=== PATIENT | female | born 1935 | race African-American/Black ===

== ENCOUNTER 2023-03-10 16:24 | Emergency (ER) | payer OTHER ==
[~2023-03-10] VITALS: Ht 157.5 cm; Wt 56.7 kg
[2023-03-10 16:34] VITALS: BP 121/71; PULSE 71; RESP 18; TEMP 98.4; O2SAT 97
[2023-03-10] MEDS ORDERED: BACITRACIN OINT 500 UNITS/GM PKT TP ONE (16:35)
[2023-03-10] MEDS ORDERED: LIDOCAINE 2% 1000 MG/50 ML VIAL INJ ONE (16:35)
[2023-03-10] MEDS ORDERED: BACI-105 TP (18:25)
[2023-03-10] MEDS ORDERED: DEXT15SY7 PO (18:25)
[2023-03-10] MEDS ORDERED: ACETAMINOPHEN 325 MG TAB PO ONE (19:05)
[2023-03-10 19:27] VITALS: BP 183/94; PULSE 71; RESP 18; TEMP 98.3; O2SAT 97
== END 2023-03-10 19:27 | disposition home or self-care (01) ==
LOC: MED 16:24
DX: S02.2XXA Fracture of nasal bones, initial encounter for closed fracture (principal); S02.5XXA Fracture of tooth (traumatic), initial encounter for closed fracture; S01.81XA Laceration without foreign body of other part of head, initial encounter; S43.401A Unspecified sprain of right shoulder joint, initial encounter; J45.909 Unspecified asthma, uncomplicated; I10 Essential (primary) hypertension; F03.90 Unspecified dementia, unspecified severity, without behavioral disturbance, psychotic disturbance, mood disturbance, and anxiety; Z79.899 Other long term (current) drug therapy; Z79.2 Long term (current) use of antibiotics; W01.198A Fall on same level from slipping, tripping and stumbling with subsequent striking against other object, initial encounter; Y92.129 Unspecified place in nursing home as the place of occurrence of the external cause; Y93.89 Activity, other specified; Y99.8 Other external cause status
CPT/HCPCS: 12011; 70450; 70486; 72125; 73030; 73060; 99284; J2001

== ENCOUNTER 2023-03-12 12:39 | Inpatient (IN) | payer OTHER ==
[~2023-03-12] VITALS: Ht 157.5 cm; Wt 56.7 kg
[2023-03-12] MEDS: methylPREDNISolone SS 40 MG/ML VIAL IVP SCH (00:28)
[~2023-03-12 12:39] MED LIST: BACI-105 TP; DEXT15SY7 PO
[2023-03-12 12:52] VITALS: BP 182/90; PULSE 60; RESP 22; TEMP 97.6; O2SAT 97
[2023-03-12] MEDS ORDERED: MORPHINE SULFATE 4 MG/ML SYR ONE (13:36)
[2023-03-12 13:37] LABS: ANION GAP 9.9 (8-16); CALCIUM 8.9 mg/dL (8.5-10.1); CHLORIDE 106 mmol/L (98-107); CREATININE 0.8 mg/dL (0.6-1.3); GLUCOSE 117 mg/dL (74-106); POTASSIUM 3.9 mmol/L (3.5-5.1); SODIUM SERUM 142 mmol/L (136-145); UREA NITROGEN, BLOOD 26 mg/dL (7-18)
[2023-03-12] MEDS: MORPHINE SULFATE 4 MG/ML SYR IVP ONE (13:42)
[2023-03-12 13:44] LABS: INR 1.02 (0.8-1.2); PROTHROMBIN TIME 10.7 secs (10.8-13.4)
[2023-03-12 14:01] LABS: BASOPHILS % (AUTO) 0.4 % (0.0-2.0); EOSINOPHILS # (AUTO) 0.4 K/uL (0-0.4); EOSINOPHILS % (AUTO) 7.3 % (0.0-4.0); HEMOGLOBIN 12.9 g/dL (12.0-16.0); LYMPHOCYTES # (AUTO) 1.1 K/uL (2.5-16.5); LYMPHOCYTES % (AUTO) 20.5 % (20.5-51.1); MEAN CORPUSCULAR HEMOGLOBIN 33 pg (27-31); MEAN CORPUSCULAR HGB CONC 34 g/dL (33-37); MEAN CORPUSCULAR VOLUME 96.8 fL (80-94); MONOCYTES # (AUTO) 0.3 K/uL (0.8-1.0); MONOCYTES % (AUTO) 4.8 % (1.7-9.3); NEUTROPHILS # (AUTO) 3.7 K/uL (1.8-7.7); PLATELET COUNT (AUTO) 209 K/uL (140-450); RED BLOOD CELL COUNT(AUTO) 3.92 MIL/uL (4.20-5.40); RED CELL DISTRIBUTION WIDTH 13.8 % (11.6-13.7); WHITE BLOOD COUNT (AUTO) 5.5 K/uL (4.8-10.8)
[2023-03-12] MEDS: ONDANSETRON 4 MG/2 ML VIAL IVP ONE (14:25)
[2023-03-12 14:41] VITALS: PULSE 57; RESP 19; O2SAT 97
[2023-03-12] MEDS: ALBUTEROL 0.083% 2.5 MG/3 ML NEBU INH ONE (14:41)
[2023-03-12] MEDS ORDERED: POTASSIUM CHL 20 MEQ/NACL 0.9% 1,000 ML IV PRN (15:20)
[2023-03-12] MEDS ORDERED: ONDANSETRON 4 MG/2 ML VIAL IVP PRN (15:20)
[2023-03-12] MEDS ORDERED: MAG SULF 2000 MG/WATER PREMIX 50 ML IV PRN (15:20)
[2023-03-12] MEDS ORDERED: POLYETHYLENE GLYCOL 17 GM/PKT PO PRN (15:20)
[2023-03-12] MEDS ORDERED: MELATONIN 3 MG TAB PO PRN (15:20)
[2023-03-12] MEDS: methylPREDNISolone SS 125 MG/2 ML VIAL IVP ONE (15:21)
[2023-03-12] MEDS ORDERED: hydrALAZINE 20 MG/ML VIAL IVP PRN (15:30)
[2023-03-12] MEDS ORDERED: AZITHROMYCIN 500 MG INJ VIAL IV ONE ×2 (16:13→16:24)
[2023-03-12] MEDS: AZITHROMYCIN 500 MG in DEXTROSE 5% 250 ML IV SCH (16:19)
[2023-03-12] MEDS: HYDROcodone/APAP 5/325 MG 1 TAB TAB PO ONE (17:42)
[2023-03-12 19:10] LABS: FLU A ANTIGEN negative (NEGATIVE); FLU B ANTIGEN negative (NEGATIVE)
[2023-03-12] MEDS ORDERED: ALBU3SOL28 (19:27)
[2023-03-12] MEDS ORDERED: FOSF3PAC PO (19:27)
[2023-03-12] MEDS ORDERED: GUAI5LIQ5 PO (19:27)
[2023-03-12] MEDS ORDERED: BENZ100C6 PO (19:27)
[2023-03-12] MEDS: ALBUTEROL SULFATE/IPRATROPIU 3 ML SOL IH PRN (21:55)
[2023-03-12 22:02] VITALS: PULSE 86; RESP 15; O2SAT 86
[2023-03-12 23:30] VITALS: O2SAT 90
[2023-03-13] VITALS (9 sets, daily range): BP systolic 135–176; BP diastolic 83–99; PULSE 75–90; RESP 16–18; TEMP 96.5–98.3; O2SAT 90–96
[2023-03-13] MEDS ORDERED: HALOPERIDOL IM 5 MG/ML VIAL ONE (03:39)
[2023-03-13] MEDS: HALOPERIDOL IM 5 MG/ML VIAL IM ONE (03:57)
[2023-03-13] MEDS ORDERED: hydrALAZINE 20 MG/ML VIAL IVP PRN (21:45)
[2023-03-14] VITALS (14 sets, daily range): BP systolic 131–177; BP diastolic 67–90; PULSE 57–94; RESP 16–24; TEMP 96.7–97.7; O2SAT 91–99
[2023-03-14 06:40] LABS: BASOPHILS % (AUTO) 0.4 % (0.0-2.0); EOSINOPHILS % (AUTO) 0.4 % (0.0-4.0); HEMATOCRIT 39.1 % (36-48); HEMOGLOBIN 13.2 g/dL (12.0-16.0); LYMPHOCYTES # (AUTO) 1.3 K/uL (2.5-16.5); LYMPHOCYTES % (AUTO) 14.7 % (20.5-51.1); MEAN CORPUSCULAR HEMOGLOBIN 33 pg (27-31); MEAN CORPUSCULAR HGB CONC 34 g/dL (33-37); MEAN CORPUSCULAR VOLUME 96.6 fL (80-94); MONOCYTES # (AUTO) 0.3 K/uL (0.8-1.0); MONOCYTES % (AUTO) 3.5 % (1.7-9.3); NEUTROPHILS # (AUTO) 7.4 K/uL (1.8-7.7); PLATELET COUNT (AUTO) 213 K/uL (140-450); RED BLOOD CELL COUNT(AUTO) 4.05 MIL/uL (4.20-5.40); RED CELL DISTRIBUTION WIDTH 13.6 % (11.6-13.7); WHITE BLOOD COUNT (AUTO) 9.1 K/uL (4.8-10.8)
[2023-03-14 06:50] LABS: ALANINE AMINOTRANSFERASE 17 U/L (12-78); ALBUMIN 3.1 g/dL (3.4-5.0); ALKALINE PHOSPHATASE 64 U/L (50-136); ASPARTATE AMINOTRANSFERASE 22 U/L (15-37); CALCIUM 8.7 mg/dL (8.5-10.1); CARBON DIOXIDE 28.9 mmol/L (21-32); CHLORIDE 103 mmol/L (98-107); CREATININE 0.7 mg/dL (0.6-1.3); GLUCOSE 83 mg/dL (74-106); MAGNESIUM 2.2 mg/dL (1.8-2.4); PHOSPHORUS 2.9 mg/dL (2.5-4.9); POTASSIUM 3.9 mmol/L (3.5-5.1); SODIUM SERUM 138 mmol/L (136-145); TOTAL BILIRUBIN 0.6 mg/dL (0.0-1.0); TOTAL PROTEIN, SERUM 7.5 g/dL (6.4-8.2); UREA NITROGEN, BLOOD 35 mg/dL (7-18)
[2023-03-14] MEDS: hydrALAZINE 10 MG TAB PO PRN (14:20)
[2023-03-14] MEDS: ACETAMINOPHEN 325 MG TAB PO PRN (14:21)
[2023-03-14] MEDS: DOXYCYCLINE 100 MG CAP PO SCH (20:42)
[2023-03-15] VITALS (10 sets, daily range): BP systolic 129–180; BP diastolic 66–98; PULSE 65–106; RESP 18–20; TEMP 97.2–98.8; O2SAT 94–98
[2023-03-15 07:16] LABS: BASOPHILS % (AUTO) 0.4 % (0.0-2.0); EOSINOPHILS # (AUTO) 0.1 K/uL (0-0.4); EOSINOPHILS % (AUTO) 2.2 % (0.0-4.0); HEMATOCRIT 36.4 % (36-48); HEMOGLOBIN 12.3 g/dL (12.0-16.0); LYMPHOCYTES # (AUTO) 1.2 K/uL (2.5-16.5); LYMPHOCYTES % (AUTO) 25.3 % (20.5-51.1); MEAN CORPUSCULAR HEMOGLOBIN 33 pg (27-31); MEAN CORPUSCULAR HGB CONC 34 g/dL (33-37); MEAN CORPUSCULAR VOLUME 96.4 fL (80-94); MONOCYTES # (AUTO) 0.3 K/uL (0.8-1.0); MONOCYTES % (AUTO) 5.5 % (1.7-9.3); NEUTROPHILS # (AUTO) 3.2 K/uL (1.8-7.7); NEUTROPHILS % (AUTO) 66.6 % (42.2-75.2); PLATELET COUNT (AUTO) 208 K/uL (140-450); RED BLOOD CELL COUNT(AUTO) 3.77 MIL/uL (4.20-5.40); RED CELL DISTRIBUTION WIDTH 13.6 % (11.6-13.7); WHITE BLOOD COUNT (AUTO) 4.9 K/uL (4.8-10.8)
[2023-03-15 07:27] LABS: ALANINE AMINOTRANSFERASE 16 U/L (12-78); ALBUMIN 2.9 g/dL (3.4-5.0); ALKALINE PHOSPHATASE 63 U/L (50-136); ANION GAP 9.1 (8-16); ASPARTATE AMINOTRANSFERASE 17 U/L (15-37); CALCIUM 8.4 mg/dL (8.5-10.1); CARBON DIOXIDE 30.6 mmol/L (21-32); CHLORIDE 106 mmol/L (98-107); CREATININE 0.6 mg/dL (0.6-1.3); GLUCOSE 87 mg/dL (74-106); MAGNESIUM 2.1 mg/dL (1.8-2.4); PHOSPHORUS 3.5 mg/dL (2.5-4.9); POTASSIUM 3.7 mmol/L (3.5-5.1); SODIUM SERUM 142 mmol/L (136-145); TOTAL BILIRUBIN 0.5 mg/dL (0.0-1.0); TOTAL PROTEIN, SERUM 6.9 g/dL (6.4-8.2); UREA NITROGEN, BLOOD 29 mg/dL (7-18)
[2023-03-15] MEDS: amLODIPine 5 MG TAB PO SCH (08:12)
[2023-03-15] MEDS ORDERED: ALBU3SOL83 IH (15:29)
[2023-03-15] MEDS ORDERED: VIB100 PO (15:29)
[2023-03-15] MEDS ORDERED: AMLO-3 PO (15:29)
== END 2023-03-15 18:20 | disposition home or self-care (01) | DRG 202 ==
LOC: MED 12:39 → MMU 15:15 → UNDOADMIN 15:21 → MMU 15:21 → MTU 03-13 06:09
PROVIDERS: ADMIT Family Medicine; ATTEND Family Medicine
DX: J45.901 Unspecified asthma with (acute) exacerbation (principal); E44.0 Moderate protein-calorie malnutrition; I50.22 Chronic systolic (congestive) heart failure; R07.9 Chest pain, unspecified; F03.90 Unspecified dementia, unspecified severity, without behavioral disturbance, psychotic disturbance, mood disturbance, and anxiety; I11.0 Hypertensive heart disease with heart failure; Z79.899 Other long term (current) drug therapy; Z68.22 Body mass index [BMI] 22.0-22.9, adult
CPT/HCPCS: 36415; 71045; 80048; 80053; 83735; 83880; 84100; 84484; 85025; 85379; 85610; 85730; 87081; 93005; 94640; 96374; 96375; 97116; 97163-GP; 99285; J0456; J1630; J1644; J2270; J2405; J2920; J2930; J7060; J7613; Q0092

== ENCOUNTER 2023-03-21 04:55 | Emergency (ER) | payer OTHER ==
[~2023-03-21] VITALS: Ht 157.5 cm; Wt 56.7 kg
[~2023-03-21 04:55] MED LIST changes: +ALBU3SOL83 IH; +AMLO-3 PO; -BACI-105 TP; +BENZ100C6 PO; -DEXT15SY7 PO; +GUAI5LIQ5 PO; +VIB100 PO
[2023-03-21 05:03] VITALS: BP 174/80; PULSE 74; RESP 20; TEMP 97.8; O2SAT 95
[2023-03-21] MEDS ORDERED: PIPERACILLIN/TAZOBACTAM 3.375 GM VIAL IV ONE (05:46)
[2023-03-21] MEDS ORDERED: BENZ200C4 PO (05:47)
[2023-03-21] MEDS ORDERED: LEVO-481 PO (05:47)
[2023-03-21] MEDS: PIPERACILLIN/TAZOBACTAM 3.375 GM in DEXTROSE 5% 50 ML IV ONE (06:13)
[2023-03-21 08:40] VITALS: BP 174/80; PULSE 74; RESP 20; TEMP 97.8; O2SAT 95
== END 2023-03-21 08:40 | disposition home or self-care (01) ==
LOC: MED 04:55
DX: J20.9 Acute bronchitis, unspecified (principal); J45.909 Unspecified asthma, uncomplicated; I10 Essential (primary) hypertension; Z88.0 Allergy status to penicillin; Z79.899 Other long term (current) drug therapy; Z88.5 Allergy status to narcotic agent; Z79.1 Long term (current) use of non-steroidal anti-inflammatories (NSAID)
CPT/HCPCS: 71045; 93005; 96365; 99284; J2543; Q0092

== ENCOUNTER 2023-04-01 08:55 | Emergency (ER) | payer OTHER ==
[~2023-04-01] VITALS: Ht 167.6 cm; Wt 64.4 kg
[~2023-04-01 08:55] MED LIST changes: +BENZ200C4 PO; +LEVO-481 PO
[2023-04-01 09:00] VITALS: BP 126/80; PULSE 62; RESP 18; TEMP 98.1; O2SAT 96
[2023-04-01 11:50] VITALS: BP 117/65; PULSE 58; RESP 17; TEMP 98.1; O2SAT 96
== END 2023-04-01 11:50 | disposition home or self-care (01) ==
LOC: MED 08:55
DX: S01.21XA Laceration without foreign body of nose, initial encounter (principal); J45.909 Unspecified asthma, uncomplicated; F03.90 Unspecified dementia, unspecified severity, without behavioral disturbance, psychotic disturbance, mood disturbance, and anxiety; I10 Essential (primary) hypertension; Z79.899 Other long term (current) drug therapy; Z88.5 Allergy status to narcotic agent; Z88.6 Allergy status to analgesic agent; Z88.0 Allergy status to penicillin; W18.39XA Other fall on same level, initial encounter; Y92.89 Other specified places as the place of occurrence of the external cause; Y93.89 Activity, other specified; Y99.8 Other external cause status
CPT/HCPCS: 70450; 70486; 99284